=== PATIENT | female | born 1960 | race African-American/Black ===

== ENCOUNTER 2018-04-27 03:14 | Emergency (ER) | payer SELFPAY ==
[~2018-04-27] VITALS: Ht 149.9 cm; Wt 59.1 kg
[2018-04-27 04:16] VITALS: BP 148/90
== END 2018-04-27 04:23 | disposition left against medical advice (07) ==
LOC: EMS 03:14
DX: R10.9 Unspecified abdominal pain (principal); Z53.21 Procedure and treatment not carried out due to patient leaving prior to being seen by health care provider